=== PATIENT | male | born 1960 ===

== ENCOUNTER 2017-11-29 09:33 | Day surgery (SDC) | payer OTHER ==
[~2017-11-29] VITALS: Ht 182.9 cm; Wt 73.9 kg
[~2017-11-29 09:33] MED LIST: AMLO5 PO; ASPI81CH PO; Hair, Skin & N1 EACH PO
== END 2017-11-29 11:05 | disposition home or self-care (01) ==
LOC: ORSCMMR 09:33 → ORD 10:00 → ORSCMMR 11:05
PROVIDERS: Internal Medicine Gastroenterology
PROC: 0DJD8ZZ Inspection of Lower Intestinal Tract, Via Natural or Artificial Opening Endoscopic (ICD-10-PCS; principal; 2017-11-29 10:00)
DX: Z12.11 Encounter for screening for malignant neoplasm of colon (principal); K57.30 Diverticulosis of large intestine without perforation or abscess without bleeding; M45.9 Ankylosing spondylitis of unspecified sites in spine; I10 Essential (primary) hypertension; Z79.82 Long term (current) use of aspirin; Z79.899 Other long term (current) drug therapy
CPT/HCPCS: J2250; J7030